=== PATIENT | female | born 1950 | race Caucasian/White ===

== ENCOUNTER 2021-05-08 14:49 | Emergency (ER) | payer MEDICARE, OTHER ==
--- NOTE | 2021-05-08 15:32 | EDM.PDOC ---
ED HPI GENERAL MEDICAL PROBLEM - General Chief Complaint: Lower Extremity Injury/Pain Stated Complaint: LT LEG PAIN Time Seen by Provider: 05/08/21 15:16 Source of Information: Reports: Patient, RN Notes Reviewed History Limitations: Reports: No Limitations - History of Present Illness INITIAL COMMENTS - FREE TEXT/NARRATIVE: Patient is a 70-year-old female who presents to the ER for left leg injury. Patient states that she went bowling with family, and threw the ball once, and felt something tear or pop in her left anterior thigh. States that she has not been able to bear weight much on the leg at all after this, and she states is very painful to move. She has to physically move her left leg in order for it to be moved at all. No numbness or tingling distal to the injury. Patient states there is pain with palpation to her anterior thigh. She did not take any sort of pain medications prior to coming to the ER. She has had no prior injury to this leg. Patient denies any other sick-like symptoms, fever/chills, cough/shortness of breath, nausea/vomiting/diarrhea. Left Leg Pain Score (Numeric/FACES): 10 - Related Data Allergies Allergy/AdvReac Type Severity Reaction Status Date / Time Penicillins Allergy Rash Verified 05/08/21 15:07 Home Meds: Home Meds . [No Known Home Meds] 05/08/21 [History] Past Medical History Respiratory History: Reports: Other (See Below) Other Respiratory History: lung cancer Musculoskeletal History: Reports: Other (See Below) Other Musculoskeletal History: back pain, chronic Social & Family History - Tobacco Use Tobacco Use Status *Q: Current Every Day Tobacco User Years of Tobacco use: 1 Packs/Tins Daily: 1 - Caffeine Use Caffeine Use: Reports: Coffee, Soda - Recreational Drug Use Recreational Drug Use: No Review of Systems - Review of Systems Review Of Systems: Comprehensive ROS is negative, except as noted in HPI. ED EXAM, GENERAL - Physical Exam Exam: See Below Exam Limited By: No Limitations General Appearance: Alert, WD/WN, No Apparent Distress Respiratory/Chest: No Respiratory Distress, Lungs Clear, Normal Breath Sounds, No Accessory Muscle Use, Chest Non-Tender Cardiovascular: Normal Peripheral Pulses, Regular Rate, Rhythm, No Edema Peripheral Pulses: 2+: Dorsalis Pedis (L), Dorsalis Pedis (R) Extremities: Normal Inspection, Normal Capillary Refill, Leg Pain (tenderness noted to the left anterior thigh; seems the worst abou midway up the anterior thigh), Limited Range of Motion (of left leg, pt has to physically move her leg in order to move around.) Neurological: Alert, Oriented, Normal Cognition, No Motor/Sensory Deficits Psychiatric: Normal Affect, Normal Mood Skin Exam: Warm, Dry, Intact, Normal Color, No Rash Course - Vital Signs Last Recorded V/S: Last Vital Signs Temp 97.6 F 05/08/21 15:04 Pulse 93 05/08/21 15:04 Resp 20 05/08/21 15:04 BP 186/84 H 05/08/21 15:04 Pulse Ox 100 05/08/21 15:04 - Orders/Labs/Meds Orders: Active Orders 24 hr Category Date Time Status Hip Min 2V or 3V w Pelvis Lt [CR] Stat Exams 05/08/21 15:25 Ordered Knee Min 4V Lt [CR] Stat Exams 05/08/21 15:25 Ordered DME for Discharge [COMM] Routine Oth 05/08/21 16:40 Ordered - Re-Assessments/Exams Free Text/Narrative Re-Assessment/Exam: 05/08/21 15:31 Patient presents to the ER for evaluation of her left leg injury. We will go ahead and x-ray her hip and knee for initial evaluation. I do highly suspect soft tissue injury likely she may have strained or tore a quadricep muscle due to her having to move her leg physically in order for it to be moved. Will write outpatient MRI orders for her to follow-up with her regular care provider or Dr. Stark for ongoing management as well. Likely patient will be sent home for crutches, and a knee immobilizer to immobilize/stabilize her leg over the weekend crutches will be sent for nonweightbearing purposes until she can be reevaluated by Ortho or her provider. 05/08/21 16:41 X-rays have been reviewed, no acute fractures of the hip or left knee or other bony abnormalities appreciated. Official radiology read is still pending. We will send the patient home with some crutches and a knee immobilizer to keep the leg immobilized over the next few days, MRI orders have been written for her for further evaluation/management. We will give her some pain medications for ongoing management as well. Departure - Departure Time of Disposition: 16:10 Disposition: Home, Self-Care 01 Condition: Good Clinical Impression: Injury of quadriceps tendon Strain of left quadriceps muscle Qualifiers: Encounter type: initial encounter Qualified Code(s): S76.112A - Strain of left quadriceps muscle, fascia and tendon, initial encounter - Discharge Information *PRESCRIPTION DRUG MONITORING PROGRAM REVIEWED*: Yes *COPY OF PRESCRIPTION DRUG MONITORING REPORT IN PATIENT EMANUEL: No Instructions: Crutch Use, Adult, [id number], Quadriceps Strain Referrals: Ebony Phillips MD [Primary Care Provider] - Forms: ED Department Discharge Additional Instructions: You have been evaluated in the ED for your left leg injury. Your x-ray demonstrated no acute fractures of your hip or knee joint. You have been provided with a knee immobilizing brace brace to prevent further injury and/or stabilize the injury you received today. You have been given crutches to remain nonweightbearing as well. Please use ice/heat as tolerated to the affected area. You may elevate the affected area to provide further relief from swelling. You may take Tylenol 500 mg or ibuprofen 600mg q6 hrs for pain relief. Please do so until you have a tolerable level of pain with activity. Do not exceed 4000mg Tylenol, Do not exceed 3200mg ibuprofen in a 24 hour time period. You were given a prescription for a strong pain medication, hydrocodone/acetaminophen 5/325, please take 1 tab every 6 hours as needed for pain not relieved by Tylenol or ibuprofen alone. Please note this does contain Tylenol in it, so do not take more than 4000 mg in a 24-hour time span. These medications can be addictive, so please take as few as possible to achieve adequate pain control. These meds can also be quite constipating, recommend that you increase your oral fluid intake and take a stool softener like MiraLAX while taking these medications. This was provided to you through your [employer] machine in the ER waiting lobby. An outpatient MRI order has been placed on your behalf for further evaluation of your suspected quadricep tendon injury. Our radiology department should call you sometime early next week to schedule you for this appointment. If you do not hear from them by Tuesday or Tuesday please call our hospital at [phone] to check on the order. Please call Ortho for follow-up and further evaluation Dr. Stark is our orthopedic surgeon, his office number is [phone]. Please call and set up an appointment as soon as possible for further management; This would be for management after your MRI has been performed. Please return to ED if your symptoms should change or worsen. Sepsis Event Note (ED) - Focused Exam Vital Signs: Vital Signs Temp Pulse Resp BP Pulse Ox 05/08/21 15:04 97.6 F 93 20 186/84 H 100 - My Orders Last 24 Hours: My Active Orders 05/08/21 15:25 Hip Min 2V or 3V w Pelvis Lt [CR] Stat Knee Min 4V Lt [CR] Stat 05/08/21 16:40 DME for Discharge [COMM] Routine - Assessment/Plan Last 24 Hours: My Active Orders 05/08/21 15:25 Hip Min 2V or 3V w Pelvis Lt [CR] Stat Knee Min 4V Lt [CR] Stat 05/08/21 16:40 DME for Discharge [COMM] Routine
--- NOTE | 2021-05-09 10:52 | CR ---
Pelvis and left hip: AP view of the pelvis was obtained as well as AP and frog-leg lateral views of the left hip. Comparison: No prior pelvis or hip study is available. Disc space narrowing is seen within the lumbar spine with endplate osteophytes and mild scoliosis. Joint spaces within both hips are preserved. No fracture, dislocation or other bony abnormality is appreciated. Impression: 1. Prominent degenerative change within the visualized lower lumbar spine with scoliosis. 2. AP pelvis and two-view left hip exam is otherwise unremarkable. Diagnostic code #2
--- NOTE | 2021-05-09 10:56 | CR ---
Left knee: AP, slight oblique and less than optimal lateral view was obtained. Comparison: No prior knee study is available. Minimal joint space narrowing is noted within the medial joint compartment. Lateral joint space is preserved. No discrete joint effusion is seen. Slight thickening of the distal quadriceps tendon is noted. No fracture or other bony abnormality is appreciated. Impression: 1. Minimal medial joint space narrowing. 2. Thickening of the distal quadriceps tendon. Please correlate if patient has symptoms to this area. Diagnostic code #3
== END 2021-05-08 18:00 | disposition home or self-care (01) ==
LOC: JD.ED 14:49
DX: S76.112A Strain of left quadriceps muscle, fascia and tendon, initial encounter (principal); Z88.0 Allergy status to penicillin; Z72.0 Tobacco use; X50.1XXA Overexertion from prolonged static or awkward postures, initial encounter
CPT/HCPCS: 73502-26-LT; 73502-LT; 73564-26-LT; 73564-LT; 99283-25

== ENCOUNTER 2021-08-26 08:18 | Emergency (ER) | payer MEDICARE, OTHER ==
[2021-08-26] MEDS ORDERED: Cyclobenzaprine 10 MG Tab PO ONE (09:00)
[2021-08-26] MEDS ORDERED: Acetaminophen/oxyCODONE 325-5 MG Tab PO ONE (09:00)
== END 2021-08-26 10:02 | disposition home or self-care (01) ==
LOC: JD.ED 08:18
DX: M54.50 Low back pain, unspecified (principal); L08.9 Local infection of the skin and subcutaneous tissue, unspecified; Z88.0 Allergy status to penicillin
CPT/HCPCS: 99283; A9270